=== PATIENT | male | born 1945 | race Caucasian/White ===

== ENCOUNTER 2018-12-02 08:58 | Outpatient (CLI) | payer MEDICARE, OTHER ==
--- NOTE | 2018-12-02 09:51 | RAD ---
CHEST TWO VIEWS: HISTORY: URI. COMPARISON: 04/10/2015 FINDINGS: Heart size is normal. Lungs are clear. IMPRESSION: No acute intrathoracic disease. Stable from prior study. POS: T[facility]
== END 2018-12-02 08:59 | disposition home or self-care (01) ==
LOC: RAD-FRANK 08:58
PROVIDERS: ATTEND Nurse Practitioner Family
DX: J06.9 Acute upper respiratory infection, unspecified (principal)
CPT/HCPCS: 71046

== ENCOUNTER 2019-08-10 09:07 | Outpatient (CLI) | payer MEDICARE, OTHER ==
--- NOTE | 2019-08-10 11:21 | MRI ---
LUMBAR SPINE MRI WITHOUT IV CONTRAST: HISTORY: Lumbar stenosis. FINDINGS: Multiplanar, multisequence MRI examination of the lumbar spine is performed. There are generalized d isk desiccation changes and ligament and facet hypertrophic changes. There are some dilated veins no jm cranial to the high-grade obstruction at L3-L4. T12-L1: Mild bilateral lateral recess stenosis. L1-L2 disk: Moderate bilateral recess stenosis. L2-L3 disk: Moderate bilateral recess stenosis and bilateral foraminal stenosis. L3-L4 disk: Several generalized disk bulging with very markedly severe canal and lateral recess sten osis and moderate to severe bilateral foraminal stenosis associated with marked ligament hypertrophic changes including a left-sided synovial cyst projecting into the canal. L4-L5 disk: Moderate central canal and moderate to severe bilateral recess stenosis and moderate to severe bilateral foraminal stenosis. L5-S1 disk: Broad-based central protrusion slightly more prominent in the right central aspect with mild indention of the right ventral thecal sac and mild lateral recess stenosis and moderate bilatera l foraminal stenosis. IMPRESSION: Multilevel variable severity canal, lateral recess, and foraminal stenosis as above, most marked at L 3-L4. POS: OFF
== END 2019-08-10 09:08 | disposition home or self-care (01) ==
LOC: SCSMRI 09:07
PROVIDERS: ATTEND Orthopaedic Surgery
DX: M48.062 Spinal stenosis, lumbar region with neurogenic claudication (principal)
CPT/HCPCS: 72148